=== PATIENT | female | born 1990 | race Caucasian/White ===

== ENCOUNTER 2018-09-21 22:01 | Emergency (ER) | payer OTHER ==
[~2018-09-21] VITALS: Ht 162.6 cm; Wt 158.8 kg
[2018-09-21] MEDS ORDERED: SYNTHROID125 MC1 PO (22:14)
[2018-09-21] MEDS ORDERED: FLEXERIL PO ×2 (22:16→23:28)
[2018-09-21] MEDS ORDERED: HYDROCHLOROTHIA25 M2 PO (22:16)
[2018-09-21] MEDS ORDERED: BUTALB-APAP-CA1 EACH PO (22:17)
[2018-09-21] MEDS ORDERED: NABUMETONE 750750 M1 PO (23:13)
[2018-09-21] MEDS ORDERED: KEFLEX500 M1 PO (23:48)
[2018-09-21 23:51] VITALS: BP 140/89
== END 2018-09-21 23:54 | disposition home or self-care (01) ==
LOC: M.ERS 22:01
DX: S61.213A Laceration without foreign body of left middle finger without damage to nail, initial encounter (principal); S39.012A Strain of muscle, fascia and tendon of lower back, initial encounter; Z90.49 Acquired absence of other specified parts of digestive tract; W01.0XXA Fall on same level from slipping, tripping and stumbling without subsequent striking against object, initial encounter; Y92.89 Other specified places as the place of occurrence of the external cause; Y93.89 Activity, other specified; Y99.8 Other external cause status